=== PATIENT | female | born 1980 | race African-American/Black ===

== ENCOUNTER 2018-11-30 00:29 | Emergency (ER) | payer SELFPAY ==
[~2018-11-30] VITALS: Ht 170.2 cm; Wt 84.7 kg
[~2018-11-30 00:29] MED LIST: CYCL10TA7 PO; IBUP800T48 PO; MULTIVITS
[2018-11-30 00:34] VITALS: Ht 170.2 cm; Wt 84.7 kg
[2018-11-30] MEDS ORDERED: ONDANSETRON (ODT) 4 MG TAB ODT STA (01:20)
[2018-11-30] MEDS ORDERED: HYDROCODONE/APAP (10/325) TAB PO ONE (01:30)
[2018-11-30 04:06] VITALS: BP 134/83; PULSE 73; RESP 18
== END 2018-11-30 04:07 | disposition home or self-care (01) ==
LOC: FTE 00:29
DX: S06.0X0A Concussion without loss of consciousness, initial encounter (principal); S16.1XXA Strain of muscle, fascia and tendon at neck level, initial encounter; S20.219A Contusion of unspecified front wall of thorax, initial encounter; V43.62XA Car passenger injured in collision with other type car in traffic accident, initial encounter
CPT/HCPCS: 70450; 71046; 72125; 81025